=== PATIENT | male | born 1930 | race Caucasian/White ===

== ENCOUNTER → 2017-08-24 | Outpatient (CLI) | payer OTHER ==
[~2017-08-24] MED LIST: BACL10TA PO; CARV25TA77 PO; CLON0.1T PO; LEVO125T11 PO; MIRT7.5T11 PO
== END | disposition home or self-care (01) ==
LOC: SHCH 09:32
PROVIDERS: ATTEND Internal Medicine Cardiovascular Disease
DX: I25.10 Atherosclerotic heart disease of native coronary artery without angina pectoris (principal)
CPT/HCPCS: 93880

== ENCOUNTER → 2017-09-26 | Outpatient (CLI) | payer OTHER | END | disposition home or self-care (01) | LOC: SHCH 10:00 | PROVIDERS: ATTEND Internal Medicine Cardiovascular Disease | DX: I71.4 Abdominal aortic aneurysm, without rupture (principal); I73.9 Peripheral vascular disease, unspecified; I70.0 Atherosclerosis of aorta | CPT/HCPCS: 93978 ==

== ENCOUNTER → 2017-10-02 | Outpatient (CLI) | payer OTHER | END | disposition home or self-care (01) | LOC: SHCH 08:50 | PROVIDERS: ATTEND Internal Medicine Cardiovascular Disease | DX: I08.3 Combined rheumatic disorders of mitral, aortic and tricuspid valves (principal); I27.20 Pulmonary hypertension, unspecified; Z95.0 Presence of cardiac pacemaker | CPT/HCPCS: 93306 ==

== ENCOUNTER → 2018-03-22 | Outpatient (CLI) | payer OTHER ==
[~2018-03-22] MED LIST changes: +AMLO5TAB7 PO; +ASPI-555 PO; +CYAN10009 PO; +FOLI0.4T2 PO; +LEVO100T12 PO; -LEVO125T11 PO; +PRAV20TA4 PO; +PYRI100T2 PO; +RAMI2.5C16 PO; +WARF2.5T47 PO
== END | disposition home or self-care (01) ==
LOC: SHCH 08:39
PROVIDERS: ATTEND Internal Medicine Cardiovascular Disease
DX: I73.9 Peripheral vascular disease, unspecified (principal)
CPT/HCPCS: 93930

== ENCOUNTER 2018-05-08 05:54 | Observation (INO) | payer OTHER ==
[2018-05-04 11:30] VITALS: BP 117/60
[2018-05-04 12:03] LABS: APPEARANCE,URINE Cloudy (CLEAR); BILIRUBIN,URINE Negative (NEGATIVE); COLOR,URINE Yellow (YELLOW); GLUCOSE, URINE (UA) Negative (NEGATIVE); KETONES,URINE Trace mg/dL (NEGATIVE); LEUKOCYTE ESTERASE ,URINE Moderate (NEGATIVE); NITRATE,URINE Negative (NEGATIVE); OCCULT BLOOD,URINE Small (NEGATIVE); PROTEIN,URINE Trace (NEGATIVE)
[2018-05-04 12:03] LABS: BASOPHILS % (AUTO) 0.7 % (0.0-5.0); EOSINOPHILS % (AUTO) 1.7 % (0.0-8.0); HEMATOCRIT 31.2 % (42-54); LYMPHOCYTES % (AUTO) 15.6 % (21.0-51.0); MEAN CORPUSCULAR HEMOGLOBIN 33.3 pg (27.0-33.0); MEAN CORPUSCULAR HGB CONC 32.6 g/dL (32.0-36.0); MONOCYTES % (AUTO) 12.3 % (3.0-13.0); NEUTROPHILS % (AUTO) 69.7 % (40.0-77.0); NUCLEATED RED BLOOD CELLS 0.1 % (0.0-0.19); PLATELET COUNT (AUTO) 191 K/uL (130-400); RED BLOOD CELL COUNT(AUTO) 3.06 MIL/uL (4.50-6.20); RED CELL DISTRIBUTION WIDTH 14.8 % (11.0-15.5); WHITE BLOOD COUNT (AUTO) 7.1 K/uL (4.8-10.8)
[2018-05-04 12:09] LABS: CREATININE 1.7 mg/dL (0.5-1.5); POTASSIUM 5.4 mmol/L (3.5-5.1)
[2018-05-04 12:13] LABS: INR 2.91 (0.85-1.15); PARTIAL THROMBOPLASTIN TIME 47.4 SEC (26.3-35.5); PROTHROMBIN TIME 29.9 SEC (9.6-11.6)
[2018-05-04 12:20] LABS: BACTERIA,URINE Many /HPF (None Seen)
--- NOTE | 2018-05-04 13:35 | NUR ---
WARFARIN PER BOBBY ALLEN PAC, PT TO STOP WARFARIN 4 DAYS PRIOR TO PROCEDURE.
--- NOTE | 2018-05-04 14:05 | NUR ---
TEACH/WARFARIN CALLED PT, SPOKE TO , INSTRUCTED THAT PT NEEDS TO STOP WARFARIN 4 DAYS PRIOR TO PROCEDURE. VERBALIZED UNDERSTANDING.
--- NOTE | 2018-05-07 12:45 | NUR ---
ABNORMAL LABS REPORTED ALL ABNORMAL LABS TO ZACHARY ROSALES. REPORTED CBC, POTASSIUM 5.4, BUN 25, CREATINE 1.7, PT, INR,PTT, UA. ORDERS TO REDRAW BMP, AND PT/INR, PTT. ALSO START NS 125ML/HR ON ARRIVAL.
[~2018-05-08] VITALS: Ht 170.2 cm; Wt 57.0 kg
[2018-05-08] VITALS (9 sets, daily range): BP systolic 118–157; BP diastolic 68–85
[~2018-05-08 05:54] MED LIST changes: +ACET-2743 PO; -AMLO5TAB7 PO; +AMLO5TAB9 PO; -BACL10TA PO; +CHOL100018 PO; +CILO100T PO; -CLON0.1T PO; -CYAN10009 PO; +LOPE2CAP PO; -PYRI100T2 PO; +RAMI1.2528 PO; -RAMI2.5C16 PO; +SODIUM CHLORIDE 0.9% 500ML 500 ML IV SCH; +VITA200T8 PO
[2018-05-08] MEDS ORDERED: SODIUM CHLORIDE 0.9% 1000ML 1,000 ML IV SCH (06:00)
[2018-05-08 06:27] LABS: CREATININE 1.7 mg/dL (0.5-1.5); POTASSIUM 5.2 mmol/L (3.5-5.1)
[2018-05-08 06:40] LABS: INR 1.55 (0.85-1.15); PARTIAL THROMBOPLASTIN TIME 37.4 SEC (26.3-35.5); PROTHROMBIN TIME 16.1 SEC (9.6-11.6)
--- NOTE | 2018-05-08 07:06 | NUR ---
REPORTED PT 16.1,INR 1.55, PTT 37.4,K 5., CREAT 1.[address] ROLLINS
[2018-05-08] MEDS ORDERED: IOHEXOL 350 MG/ML 100ML INFUS..BTL IV ONE ×2 (12:06→13:11)
[2018-05-08] MEDS ORDERED: SODIUM BICARB 50MEQ 50ML VIAL ONE (12:06)
[2018-05-08] MEDS ORDERED: NITROGLYCERIN 5 MG/ML 10 ML VIAL IV ONE (12:06)
[2018-05-08] MEDS ORDERED: HEPARIN SODIUM 1000UNIT/ML 10ML VIAL ONE (12:06)
[2018-05-08] MEDS ORDERED: LIDOCAINE HCL-MPF 2% 5ML VIAL ONE (12:06)
[2018-05-08] MEDS ORDERED: MEPERIDINE-PF 25 MG/ML SYG ONE (12:57)
[2018-05-08] MEDS ORDERED: MIDAZOLAM HCL 1 MG/ML 2ML VIAL ONE (12:57)
[2018-05-08] MEDS ORDERED: IODIXANOL 320 MG/ML 100 ML VIAL ONE (14:03)
[2018-05-08] MEDS: SODIUM CHLORIDE 0.9% 1000ML 1,000 ML IV SCH (15:03)
[2018-05-08] MEDS ORDERED: CLOPIDOGREL BISULFATE 300 MG TAB ONE (15:14)
[2018-05-08] MEDS ORDERED: ONDANSETRON HCL 4 MG/2 ML VIAL IVP PRN (15:15)
[2018-05-08] MEDS ORDERED: NON-FORMULARY MEDICATION 1 EACH (Acetaminophen (Tylenol Extra Strength) 500 MG) PO PRN (15:15)
[2018-05-08] MEDS ORDERED: WARFARIN SODIUM 2.5 MG TAB PO SCH (15:15)
[2018-05-08] MEDS ORDERED: ACETAMINOPHEN-CODEINE 300/30MG TAB PO PRN ×2 (15:15)
[2018-05-08] MEDS ORDERED: LOPERAMIDE HCL 2 MG CAP PO PRN (15:15)
[2018-05-08] MEDS ORDERED: CLOPIDOGREL BISULFATE 300 MG TAB PO ONE (16:15)
[2018-05-08] MEDS ORDERED: MORPHINE SULFATE 5 MG/ML VIAL IV PRN (20:00)
[2018-05-08] MEDS ORDERED: MORPHINE SULFATE 4 MG/1ML SYG IV PRN ×2 (20:00)
[2018-05-08] MEDS ORDERED: PHARMACY COMMUNICATION MISC SCH (20:15)
[2018-05-08] MEDS ORDERED: MORPHINE SULFATE 4 MG/1ML SYG ONE (20:42)
[2018-05-08] MEDS ORDERED: ACETAMINOPHEN 325 MG TAB PO PRN (20:45)
[2018-05-08] MEDS ORDERED: ONDANSETRON HCL 4 MG/2 ML VIAL IV PRN ×2 (20:45→21:15)
[2018-05-08] MEDS ORDERED: MORPHINE SULFATE 2 MG/ML 1ML SYG IV PRN (20:45)
[2018-05-08] MEDS ORDERED: MIRTAZAPINE 15 MG TABLET PO SCH (21:00)
[2018-05-08] MEDS ORDERED: SIMVASTATIN 10 MG TABLET PO SCH (21:00)
--- NOTE | 2018-05-08 21:00 | NUR ---
R groin assessed. hard nodule palpated, bruising noted, site tender to touch. R pedal pulse by doppler, R leg warm, cap refill < 3 seconds, pt denies numbness or tingling. manual pressure applied to R groin from 2099- 2114. dstat and pressure dressing applied to r groin.
[2018-05-08] MEDS: CILOSTAZOL 100 MG TAB PO SCH (21:21)
[2018-05-08] MEDS: CARVEDILOL 25 MG TABLET PO SCH (21:21)
[2018-05-08] MEDS: AMLODIPINE BESYLATE 5 MG TAB PO SCH (21:21)
[2018-05-09] MEDS: SODIUM CHLORIDE 0.9% 1000ML 1,000 ML IV SCH (03:46)
[2018-05-09 03:59] VITALS: BP 122/65
[2018-05-09 04:55] LABS: BASOPHILS % (AUTO) 0.7 % (0.0-5.0); EOSINOPHILS % (AUTO) 0.5 % (0.0-8.0); HEMATOCRIT 26.5 % (42-54); LYMPHOCYTES % (AUTO) 11.4 % (21.0-51.0); MEAN CORPUSCULAR HEMOGLOBIN 34.2 pg (27.0-33.0); MEAN CORPUSCULAR HGB CONC 33.9 g/dL (32.0-36.0); MEAN CORPUSCULAR VOLUME 101.1 fL (79-99); MONOCYTES % (AUTO) 10.6 % (3.0-13.0); NEUTROPHILS % (AUTO) 76.8 % (40.0-77.0); PLATELET COUNT (AUTO) 215 K/uL (130-400); RED BLOOD CELL COUNT(AUTO) 2.62 MIL/uL (4.50-6.20); RED CELL DISTRIBUTION WIDTH 14.7 % (11.0-15.5); WHITE BLOOD COUNT (AUTO) 8.8 K/uL (4.8-10.8)
[2018-05-09 05:09] LABS: ALBUMIN 2.9 g/dL (3.5-5.0); BILIRUBIN,TOTAL 0.6 mg/dL (0.2-1.0); CREATININE 1.3 mg/dL (0.5-1.5); POTASSIUM 4.4 mmol/L (3.5-5.1); TOTAL PROTEIN, SERUM 6.1 g/dL (6.0-8.3)
[2018-05-09 07:18] VITALS: BP 134/67
[2018-05-09 07:34] VITALS: BP 122/65
[2018-05-09] MEDS: CARVEDILOL 25 MG TABLET PO SCH (07:34)
[2018-05-09] MEDS: AMLODIPINE BESYLATE 5 MG TAB PO SCH (07:34)
[2018-05-09] MEDS: CILOSTAZOL 100 MG TAB PO SCH (07:34)
--- NOTE | 2018-05-09 08:00 | NUR ---
ASSESSMENT PT IS [id number] DENIES CP DENIES SOB DENIES NV NO COMPLAINTS. RIGHT GROIN WNL DRESSING IN PLACE.
[2018-05-09] MEDS ORDERED: ASPIRIN 81MG TAB.CHEW PO SCH (09:00)
[2018-05-09] MEDS ORDERED: CLOPIDOGREL BISULFATE 75 MG TAB PO SCH (09:00)
[2018-05-09] MEDS ORDERED: FOLIC ACID 1 MG TABLET PO SCH (09:00)
[2018-05-09] MEDS ORDERED: Cholecalciferol (Vitamin D3) (Vitamin D3) 1,000 UNIT PO SCH (09:00)
[2018-05-09] MEDS ORDERED: LEVOTHYROXINE 100 MCG TABLET PO SCH (09:00)
--- NOTE | 2018-05-09 10:48 | NUR ---
DISCHARGE PATIENT AND SPOUSE VERBALIZES DC INSTRUCTIONS UNDERSTANDING AGREES TO TAKE MEDS ORDERED AND FOLLOW UP WITH DR ROLLINS OUTPATIENT. PIV REMOVED CATH TIP INTACT, TELE PACK REMOVED. ALL QUESTIONS ANSWERED.
[2018-05-09] MEDS ORDERED: RAMIPRIL 1.25 MG PO SCH (21:00)
== END 2018-05-09 10:58 | disposition home or self-care (01) ==
LOC: DAH 05:54 → DAHIP 05:55 → 2DH 15:57
PROVIDERS: ADMIT Internal Medicine; ATTEND Internal Medicine
DX: I70.8 Atherosclerosis of other arteries (principal); E11.51 Type 2 diabetes mellitus with diabetic peripheral angiopathy without gangrene; E11.22 Type 2 diabetes mellitus with diabetic chronic kidney disease; I13.0 Hypertensive heart and chronic kidney disease with heart failure and stage 1 through stage 4 chronic kidney disease, or unspecified chronic kidney disease; I50.42 Chronic combined systolic (congestive) and diastolic (congestive) heart failure; N18.3 Chronic kidney disease, stage 3 (moderate); D68.59 Other primary thrombophilia; E78.5 Hyperlipidemia, unspecified; I25.10 Atherosclerotic heart disease of native coronary artery without angina pectoris; I48.91 Unspecified atrial fibrillation; I70.1 Atherosclerosis of renal artery; I71.4 Abdominal aortic aneurysm, without rupture; Z86.73 Personal history of transient ischemic attack (TIA), and cerebral infarction without residual deficits; Z95.1 Presence of aortocoronary bypass graft; Z82.49 Family history of ischemic heart disease and other diseases of the circulatory system; Z83.3 Family history of diabetes mellitus
CPT/HCPCS: 36215; 36415 ×3; 37236; 71045; 75710; 80048 ×2; 80053; 81001; 85025 ×2; 85610 ×2; 85730 ×2; 93005; 96374; C1725; C1760; C1769; C1874 ×3; C1887; C1893 ×2; C1894; G0378 ×29; J1644 ×2; J2175; J2250; J2270; J3490 ×3; J7030 ×3; Q9965 ×3; Q9967 ×3; 99156; 99157

== ENCOUNTER → 2019-09-25 | Outpatient (CLI) | payer OTHER ==
[~2019-09-25] MED LIST changes: +AMLO-257 PO; -AMLO5TAB9 PO; -ASPI-555 PO; -CILO100T PO; -SODIUM CHLORIDE 0.9% 500ML 500 ML IV SCH; -WARF2.5T47 PO
== END | disposition home or self-care (01) ==
LOC: RAH 08:59
PROVIDERS: ATTEND Internal Medicine
DX: N28.1 Cyst of kidney, acquired (principal); R31.9 Hematuria, unspecified
CPT/HCPCS: 76770

== ENCOUNTER → 2019-10-11 | Outpatient (CLI) | payer OTHER ==
[~2019-10-11] MED LIST changes: -AMLO-257 PO; +AMLO5TAB9 PO
== END | disposition home or self-care (01) ==
LOC: SHCH 15:26
PROVIDERS: ATTEND Internal Medicine Cardiovascular Disease
DX: I25.10 Atherosclerotic heart disease of native coronary artery without angina pectoris (principal)
CPT/HCPCS: 93306; 93356

== ENCOUNTER → 2019-11-07 | Outpatient (CLI) | payer OTHER | END | disposition home or self-care (01) | LOC: SHCH 08:58 | PROVIDERS: ATTEND Internal Medicine Cardiovascular Disease | DX: I71.4 Abdominal aortic aneurysm, without rupture (principal); R09.89 Other specified symptoms and signs involving the circulatory and respiratory systems | CPT/HCPCS: 93880; 93978 ==

== ENCOUNTER → 2020-10-15 | Outpatient (CLI) | payer OTHER ==
[~2020-10-15] MED LIST changes: +AMLO-257 PO; -AMLO5TAB9 PO; -FOLI0.4T2 PO; +FOLI0.4T6 PO
== END | disposition home or self-care (01) ==
LOC: SHCH 08:17
PROVIDERS: ATTEND Internal Medicine Cardiovascular Disease
DX: I08.3 Combined rheumatic disorders of mitral, aortic and tricuspid valves (principal); I65.23 Occlusion and stenosis of bilateral carotid arteries; I10 Essential (primary) hypertension; E78.5 Hyperlipidemia, unspecified; Z95.0 Presence of cardiac pacemaker
CPT/HCPCS: 93306; 93356; 93880

== ENCOUNTER → 2020-10-20 | Outpatient (CLI) | payer OTHER | END | disposition home or self-care (01) | LOC: SHCH 08:05 | PROVIDERS: ATTEND Internal Medicine Cardiovascular Disease | DX: I71.4 Abdominal aortic aneurysm, without rupture (principal) | CPT/HCPCS: 93978 ==